=== PATIENT | female | born 1955 | race Caucasian/White ===

== ENCOUNTER → 2019-01-27 | Outpatient (CLI) | payer MEDICARE ==
[~2019-01-27] MED LIST: ASCO500 PO; ASPI81CH PO; ATOR10; ATOR20 PO; CEPH500 PO; DIPASPER PO; DOCU100 PO; ERGO50000 PO; ESOM20; ESOM20 PO; FURO100EL; GLIM2 PO; KRILL OIL500 MG PO; Keflex500 MG PO; LOSA50 PO; Levaquin750 MG PO; MELA3 PO; METF500 PO; MULVIT PO; POTCHL20ER
== END | disposition home or self-care (01) ==
LOC: LAB SHORT 04:15 → LAB 04:15 → LAB FUT 01-24 14:10 → EDSTATUS 01-24 14:10
PROVIDERS: Internal Medicine
DX: R76.8 Other specified abnormal immunological findings in serum (principal)
CPT/HCPCS: 81050

== ENCOUNTER → 2019-10-27 | Outpatient (CLI) | payer MEDICARE ==
[2019-10-27 11:24] LABS: Source, Urine Clean Catch
[2019-10-27 12:51] LABS: Appearance, Urine Clear (Clear); Bilirubin, Urine Neg (Neg); Blood, Urine 2+ (Neg); Color, Urine Yellow (P-Yellow); Glucose Qualitative, Urine Neg (Neg); Ketones, Urine Neg (Neg); Leukocyte Esterase, Urine 2+ (Neg); Nitrite, Urine Neg (Neg); Protein, Urine 1+ (Neg); Urobilinogen, Urine NORM (Normal)
[2019-10-27 13:01] LABS: Bacteria Few /hpf; Mucus Light (0-Heavy); Red Blood Cells, Urine 0-2 /hpf (0-2); Squamous Epithelial Cells Rare /hpf (Few)
== END | disposition home or self-care (01) ==
LOC: LAB SHORT 11:23 → LAB 11:23
PROVIDERS: Internal Medicine
DX: R30.0 Dysuria (principal); R35.0 Frequency of micturition
CPT/HCPCS: 81001; 87077; 87086; 87147; 87186

== ENCOUNTER → 2019-11-10 | Outpatient (CLI) | payer MEDICARE ==
[2019-11-10 10:18] LABS: Source, Urine Clean Catch
[2019-11-10 10:46] LABS: Bilirubin, Urine Neg (Neg); Blood, Urine 2+ (Neg); Glucose Qualitative, Urine Neg (Neg); Ketones, Urine Neg (Neg); Leukocyte Esterase, Urine 3+ (Neg); Nitrite, Urine Neg (Neg); Protein, Urine 2+ (Neg); Urobilinogen, Urine NORM (Normal)
[2019-11-10 10:53] LABS: Appearance, Urine Cloudy (Clear); Color, Urine Yellow (P-Yellow); White Blood Cells, Urine TNTC /hpf (0-5)
[2019-11-10 10:54] LABS: Bacteria Many /hpf; Squamous Epithelial Cells Few /hpf (Few)
== END | disposition home or self-care (01) ==
LOC: OLS 10:16 → LAB SHORT 10:16
PROVIDERS: Internal Medicine
DX: N39.0 Urinary tract infection, site not specified (principal)
CPT/HCPCS: 81001; 87077; 87086; 87186

== ENCOUNTER → 2019-11-19 | Outpatient (CLI) | payer MEDICARE ==
[2019-11-19 11:03] LABS: Source, Urine Voided
[2019-11-19 13:53] LABS: Bilirubin, Urine Neg (Neg); Blood, Urine Neg (Neg); Glucose Qualitative, Urine Neg (Neg); Ketones, Urine Neg (Neg); Leukocyte Esterase, Urine 1+ (Neg); Nitrite, Urine Neg (Neg); Protein, Urine Neg (Neg); Urobilinogen, Urine NORM (Normal)
[2019-11-19 14:15] LABS: Appearance, Urine Clear (Clear); Color, Urine Yellow (P-Yellow)
[2019-11-19 14:16] LABS: Bacteria Few /hpf; Red Blood Cells, Urine Rare /hpf (0-2); Squamous Epithelial Cells Few /hpf (Few)
== END | disposition home or self-care (01) ==
LOC: LAB 11:02 → LAB SHORT 11:02
PROVIDERS: Internal Medicine
DX: N39.0 Urinary tract infection, site not specified (principal)
CPT/HCPCS: 81001; 87086

== ENCOUNTER → 2020-01-04 | Outpatient (CLI) | payer MEDICARE ==
[2020-01-04 15:18] LABS: Source, Urine Clean Catch
[2020-01-04 17:18] LABS: Bilirubin, Urine Neg (Neg); Blood, Urine Neg (Neg); Glucose Qualitative, Urine Neg (Neg); Ketones, Urine Neg (Neg); Leukocyte Esterase, Urine 1+ (Neg); Nitrite, Urine Neg (Neg); Protein, Urine 1+ (Neg); Urobilinogen, Urine NORM (Normal); pH, Urine 6.5 (5.0-8.0)
[2020-01-04 17:30] LABS: Appearance, Urine Clear (Clear); Color, Urine Yellow (P-Yellow)
[2020-01-04 17:31] LABS: White Blood Cells, Urine 25-50 /hpf (0-5)
[2020-01-04 17:32] LABS: Bacteria Rare /hpf; Red Blood Cells, Urine 0-2 /hpf (0-2); Squamous Epithelial Cells Few /hpf (Few)
== END | disposition home or self-care (01) ==
LOC: LAB 15:17 → LAB SHORT 15:17 → LAB FUT 12-25 18:40
PROVIDERS: Internal Medicine
DX: R82.90 Unspecified abnormal findings in urine (principal)
CPT/HCPCS: 81001

== ENCOUNTER 2021-10-20 08:23 | Day surgery (SDC) | payer MEDICARE ==
[~2021-10-20] VITALS: Ht 167.6 cm; Wt 108.9 kg
[2021-10-20] MEDS ORDERED: PIOG15 (09:11)
[2021-10-20] MEDS ORDERED: VALA500 (09:11)
[2021-10-20] MEDS ORDERED: AMLODIPINE-OLM1 EAC2 (09:11)
[2021-10-20] MEDS ORDERED: BETA.05TCA (09:12)
[2021-10-20] MEDS ORDERED: Amaryl1 MG (09:12)
[2021-10-20] MEDS ORDERED: FISH OIL 1,2001 EAC7 (09:12)
== END 2021-10-20 10:38 | disposition home or self-care (01) ==
LOC: ORSCSDS 08:23
PROVIDERS: Internal Medicine Gastroenterology
PROC: 0DBE8ZX Excision of Large Intestine, Via Natural or Artificial Opening Endoscopic, Diagnostic (ICD-10-PCS; principal; 2021-10-20 09:45)
PROC: 0DBM8ZX Excision of Descending Colon, Via Natural or Artificial Opening Endoscopic, Diagnostic (ICD-10-PCS; principal; 2021-10-20 09:45)
DX: Z12.11 Encounter for screening for malignant neoplasm of colon (principal); K57.30 Diverticulosis of large intestine without perforation or abscess without bleeding; D12.4 Benign neoplasm of descending colon; I10 Essential (primary) hypertension; G47.33 Obstructive sleep apnea (adult) (pediatric); E11.9 Type 2 diabetes mellitus without complications; E78.5 Hyperlipidemia, unspecified; E66.01 Morbid (severe) obesity due to excess calories; Z68.38 Body mass index [BMI] 38.0-38.9, adult; Z79.84 Long term (current) use of oral hypoglycemic drugs; Z79.899 Other long term (current) drug therapy
CPT/HCPCS: 82947; 88305; J2704; J7120

== ENCOUNTER → 2022-02-09 | Outpatient (CLI) | payer MEDICARE ==
[~2022-02-09] MED LIST changes: +AMLODIPINE-OLM1 EAC2; +AMOCLA875 PO; +Amaryl1 MG; +BETA.05TCA; +FISH OIL 1,2001 EAC7; +PIOG15; +VALA500
[2022-02-13 11:11] LABS: PROTEIN,TOTAL,URINE 6.8 mg/dL (Not Estab.)
== END | disposition home or self-care (01) ==
LOC: LAB SHORT 14:10
PROVIDERS: Internal Medicine
DX: R79.89 Other specified abnormal findings of blood chemistry (principal)
CPT/HCPCS: 84166; 86335

== ENCOUNTER → 2025-02-01 | Outpatient (CLI) | payer OTHER ==
[2025-02-01 16:11] LABS: Creatinine, Urine Random 84.1 mg/dL (27.00-270.00); Microalb/Creat Ratio UR, Rand 70.63 mg/g (0.000-30.000); Microalbumin, Random Urine 59.4 mg/L (0.000-20.000)
== END ==
LOC: LAB 06:00 → LAB SHORT 06:00 → LAB FUT 11-02 13:05
PROVIDERS: Internal Medicine
DX: N18.31 Chronic kidney disease, stage 3a (principal); E78.5 Hyperlipidemia, unspecified; E55.9 Vitamin D deficiency, unspecified; Z79.899 Other long term (current) drug therapy
CPT/HCPCS: 82043; 82570

== ENCOUNTER 2025-10-20 10:08 | Day surgery (SDC) | payer OTHER ==
[~2025-10-20] VITALS: Ht 167.6 cm; Wt 113.7 kg
[~2025-10-20 10:08] MED LIST changes: +Balanced Salt Epinephrine Irrigation Solution 500 mL IR SCH; +Moxifloxacin HCL 0.5 MG/0.1 ML 0.4MLSYR LEFTEYE SCH; +Ondansetron 4 MG SoluTab MM PRN; +PHENYLEPHRINE\\TROPICAMIDE\\TETRACAINE OPHTHALMIC DILATING SOLN LEFTEYE PRN; +Povidone-Iodine 450 DROP/30 ML Solution LEFTEYE SCH; +Povidone-Iodine 450 DROP/30 ML Solution ONE; +Tetracaine HCl/Pf 0.5% Opth Soln 4 ml ONE; +Triamcinolone Inj Susp 40 MG / ML 1ML Vial INJ SCH; +Triamcinolone Inj Susp 40 MG / ML 1ML Vial ONE
[2025-10-20] MEDS ORDERED: Ondansetron 4 MG SoluTab ONE (10:22)
[2025-10-20] MEDS ORDERED: TRULICITY4.5 MG/0.5 SQ (10:32)
[2025-10-20] MEDS ORDERED: REPATHA SY140 MG/1 M SQ (10:32)
--- NOTE | 2025-10-20 11:00 | NUR ---
10/20/25 1100 Megan Nixon UPON ARRIVAL PT RATED ANXIETY 3/10; VALIUM GIVEN PER DR'S ORDERS. PT NOW RATES ANXIETY 0/10. VSS. PT ON PULSE OX. O2 SATS ARE 97% ON ROOM AIR.
--- NOTE | 2025-10-20 11:09 | NUR ---
10/20/25 1109 Nikki Ramachandran 1106 BP:121/99 HR:77 O2:98% RESP:16
[2025-10-20 11:45] VITALS: BP 148/57
== END 2025-10-20 11:37 | disposition home or self-care (01) ==
LOC: ORSCSDS 10:08
PROVIDERS: Ophthalmology
PROC: 08RK3JZ Replacement of Left Lens with Synthetic Substitute, Percutaneous Approach (ICD-10-PCS; principal; 2025-10-20 11:30)
DX: E11.36 Type 2 diabetes mellitus with diabetic cataract (principal); H25.812 Combined forms of age-related cataract, left eye; J44.9 Chronic obstructive pulmonary disease, unspecified; I10 Essential (primary) hypertension; G47.33 Obstructive sleep apnea (adult) (pediatric); E78.5 Hyperlipidemia, unspecified; K21.9 Gastro-esophageal reflux disease without esophagitis; K76.0 Fatty (change of) liver, not elsewhere classified; Z79.84 Long term (current) use of oral hypoglycemic drugs; Z79.899 Other long term (current) drug therapy
CPT/HCPCS: A9270; J3301; V2632